=== PATIENT | female | born 2000 | race Caucasian/White ===

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

== ENCOUNTER 2022-07-29 21:30 | Emergency (ER) | payer OTHER, BC ==
[~2022-07-29] VITALS: Ht 170.2 cm; Wt 90.7 kg
[~2022-07-29 21:30] MED LIST: ALBU2.5V5 NEB; LEVO750 PO; MONT10T PO; PRED10 PO; QVAR REDIHALE10.6 G1 INH
== END 2022-07-29 22:48 | disposition home or self-care (01) ==
LOC: ER 21:30
DX: S93.401A Sprain of unspecified ligament of right ankle, initial encounter (principal); X50.1XXA Overexertion from prolonged static or awkward postures, initial encounter; Z91.048 Other nonmedicinal substance allergy status; Z79.899 Other long term (current) drug therapy
CPT/HCPCS: 73610

== ENCOUNTER 2022-08-03 17:42 | Emergency (ER) | payer OTHER, BC ==
[~2022-08-03] VITALS: Ht 170.2 cm; Wt 90.7 kg
== END 2022-08-03 17:58 | disposition home or self-care (01) ==
LOC: ER 17:42
DX: S93.401D Sprain of unspecified ligament of right ankle, subsequent encounter (principal); X50.1XXD Overexertion from prolonged static or awkward postures, subsequent encounter
CPT/HCPCS: 99281